=== PATIENT | male | born 1990 | race Hispanic/Latino ===

== ENCOUNTER 2020-10-14 19:00 | Emergency (ER) | payer SELFPAY ==
[~2020-10-14] VITALS: Ht 172.7 cm; Wt 87.5 kg
[2020-10-14] MEDS ORDERED: KETOROLAC TROMETHAMINE 30 MG/ML VIAL IV STA (20:43)
[2020-10-14] MEDS ORDERED: AZITHROMYCIN 250 MG TAB PO ONE (20:45)
[2020-10-14] MEDS ORDERED: CEFTRIAXONE SOD 1 GM/50 ML BAG IV ONE (20:45)
[2020-10-14] MEDS ORDERED: KETOROLAC TROMETHAMINE 30 MG/ML VIAL ONE (20:58)
[2020-10-14] MEDS ORDERED: AZITHROMYCIN 250 MG TAB ONE (20:58)
[2020-10-14] MEDS ORDERED: DEXAMETHASONE SOD PHOS INJ 4 MG/ML VIAL ONE (20:58)
[2020-10-14] MEDS ORDERED: CEFTRIAXONE SOD 1 GM 50 ML IV ONE (20:58)
[2020-10-14] MEDS ORDERED: DEXAMETHASONE SOD PHOS INJ 4 MG/ML VIAL IV ONE (21:00)
[2020-10-14] MEDS ORDERED: AZITHROMYCIN250 MG PO (21:17)
[2020-10-14] MEDS ORDERED: PROAIR HFA INH8.5 GM INH (21:20)
[2020-10-14] MEDS ORDERED: DEXAMETHASONE6 MG PO (21:22)
[2020-10-14 21:25] VITALS: BP 172/85
== END 2020-10-14 21:43 | disposition home or self-care (01) ==
LOC: FSED 19:19
DX: J18.9 Pneumonia, unspecified organism (principal); J98.01 Acute bronchospasm; R09.1 Pleurisy; R05 Cough; R06.02 Shortness of breath
CPT/HCPCS: 71046; 80053; 81003; 82553; 84484; 85025; 85379; 87400; 96374; 96375; 99284; J0696; J1100; J1885; 93005

== ENCOUNTER 2022-11-07 17:55 | Emergency (ER) | payer SELFPAY ==
[~2022-11-07] VITALS: Ht 172.7 cm; Wt 90.7 kg
[~2022-11-07 17:55] MED LIST: AZITHROMYCIN250 MG PO; DEXAMETHASONE6 MG PO; PROAIR HFA INH8.5 GM INH
[2022-11-07] MEDS ORDERED: PREDNISONE20 MG PO (18:23)
[2022-11-07] MEDS ORDERED: ONDANSETRON HCL INJ 2MG/ML 2ML 2 MG/ML VIAL IV STA (18:32)
[2022-11-07] MEDS ORDERED: Morphine 4mg INJECTION 4 MG/ML INJ IV STA (18:32)
[2022-11-07] MEDS ORDERED: SODIUM CHLORIDE 0.9% 1000ML 1,000 ML IV STA (18:32)
[2022-11-07 18:45] LABS: BASOPHILS % 0.2 % (0.0-1.0); HEMATOCRIT 46.4 % (38.2-49.6); HEMOGLOBIN 15.9 g/dL (14.0-18.0); LYMPHOCYTES # (AUTO) 1.9 (1.0-3.2); LYMPHOCYTES % 11.2 % (18.0-39.1); MEAN CORPUSCULAR HEMOGLOBIN 29.8 pg (28-32); MEAN CORPUSCULAR HGB CONC 34.3 g/dL (31-35); MEAN CORPUSCULAR VOLUME 86.9 fL (81-99); MONOCYTES # (AUTO) 1.2 (0.2-0.8); MONOCYTES % 6.7 % (4.4-11.3); NEUTROPHILS # (AUTO) 14.1 (2.1-6.9); NEUTROPHILS % 81.7 % (38.7-80.0); PLATELET COUNT 323 x10e3/uL (140-360); RED BLOOD COUNT 5.34 x10e6/uL (4.3-5.7)
[2022-11-07] MEDS ORDERED: KETOROLAC TROMETHAMINE 30 MG/ML VIAL IV STA (18:51)
[2022-11-07 19:10] LABS: CLARITY,URINE SL CLOUDY (CLEAR); COLOR,URINE YELLOW (YELLOW); KETONES,URINE 1+ (NEGATIVE); LEUKOCYTE ESTERASE ,URINE NEGATIVE (NEGATIVE); NITRITE,URINE NEGATIVE (NEGATIVE); PROTEIN,URINE DIPSTICK TRACE (NEGATIVE); URINE UROBILINOGEN 0.2 mg/dL (0.2 - 1)
[2022-11-07 19:12] LABS: BACTERIA,URINE FEW /HPF
[2022-11-07 19:13] LABS: ALBUMIN/GLOBULIN RATIO 1.1 (0.8-2.0); CALCIUM 9.2 mg/dL (8.4-10.2); CREATININE, SERUM 1.65 mg/dL (0.72-1.25); WBC,URINE (MAN) 0-5 /HPF (0-5)
[2022-11-07] MEDS ORDERED: IOPAMIDOL 370 MG/ML 100 ML INFUS..BTL INJ ONE (19:50)
[2022-11-07] MEDS ORDERED: KETOROLAC TROME10 MG PO (21:18)
[2022-11-07] MEDS ORDERED: CEFDINIR300 MG PO (21:18)
[2022-11-07] MEDS ORDERED: ONDANSETRON ODT4 MG PO (21:18)
[2022-11-07] MEDS ORDERED: FLOMAX0.4 MG PO (21:18)
[2022-11-07] MEDS ORDERED: ACETAMINOPHEN-1 EAC4 PO (21:18)
[2022-11-07 21:46] VITALS: BP 149/70
== END 2022-11-07 21:44 | disposition home or self-care (01) ==
LOC: ER 18:02
DX: R10.32 Left lower quadrant pain (principal); N20.1 Calculus of ureter; R11.2 Nausea with vomiting, unspecified
CPT/HCPCS: 36415; 74177; 80053; 81001; 83690; 85025; 99284; J1885; J2270; J2405; J7030; Q9967